=== PATIENT | female | born 1990 | race Caucasian/White ===

== ENCOUNTER 2023-08-15 08:47 | Emergency (ER) | payer OTHER, SELFPAY ==
--- NOTE | ~2023-08-15 | XR_ITS ---
EXAMINATION: [id number] DATE: 08/15/2023 09:16 INDICATION: Sudden onset left knee pain post injury while walking TECHNIQUE: AP and crosstable lateral views of the left knee were obtained. COMPARISON: None. FINDINGS: Alignment is normal. No fracture. Joint spaces appear relatively preserved although narrowing can be underestimated on nonweightbearing imaging. There are tiny marginal osteophytes in all 3 compartments consistent with at least minimal osteoarthritis. Heterotopic ossicle versus loose osteochondral body projecting along the lateral margin of the lateral compartment joint line on the frontal projection and along the inferior aspect of the patellofemoral articulation on the lateral projection. No joint effusion or layering lipohemarthrosis. IMPRESSION: 1. No left knee joint effusion or acute osseous abnormality. 2. At least minimal tricompartmental osteoarthritis at the left knee with heterotopic ossicles versus loose osteochondral along the lateral aspect of the knee. Reviewed, dictated and finalized at location A. IMPRESSION: 1. No left knee joint effusion or acute osseous abnormality. 2. At least minimal tricompartmental osteoarthritis at the left knee with heter otopic ossicles versus loose osteochondral along the lateral aspect of the knee .
[2023-08-15 08:50] VITALS: BP 167/104; PULSE 79; RESP 16; TEMP 36.6; O2SAT 98
--- NOTE | 2023-08-15 09:22 | ED.GENADULT ---
HPI - General Adult General Chief complaint: Extremity Injury, Lower Stated complaint: knee injury Time Seen by Provider: 08/15/23 08:56 History of Present Illness HPI narrative: Ksenia Sparks is a 32 y/o female who presents with reports of injuring her left knee at work in May. She states at that time she had lifted something heavy and twisted and had instant pain to her left knee. She followed up with her PCP and Ortho and was told to wear a knee brace to help with her knee pain.. She has been wearing the brace and last night she got up to walk somewhere and her right left knee rotated and she had increased pain that has not stopped, she tried to wear the knee brace but states it was causing her too much pain. She reports she cannot straighten it all the way and having a lot of pain to the lateral aspect of the left knee. Related Data Allergies Allergy/AdvReac Type Severity Reaction Status Date / Time butorphanol Allergy Unknown Unknown Verified 08/15/23 08:49 Latex, Natural Rubber Allergy Itching Verified 08/15/23 08:49 peanut Allergy Anaphylaxis Verified 08/15/23 08:49 Review of Systems Review of Systems: CONSTITUTIONAL: Denies fever, chills, or sweats. EYES: Denies visual changes, redness, or discharge. ENT: Denies rhinorrhea, congestion, sore throat, or otalgia. CARDIOVASCULAR: Denies chest pain, palpitations, or edema. RESPIRATORY: Denies cough or dyspnea. GASTROINTESTINAL: Denies abdominal pain, nausea, vomiting, or diarrhea. GENITOURINARY: Denies dysuria or hematuria. SKIN: Denies rash or itching. MUSCULOSKELETAL: complains of severe left knee pain NEUROLOGIC: Denies headache, numbness, dizziness, or weakness. PSYCHIATRIC: Denies anxiety or depression. Exam Narrative: GENERAL: Well-appearing, well-nourished, and in no acute distress. HEAD: Normocephalic, atraumatic. EYES: PERRLA and EOMI. ENT: Nares clear, no rhinorrhea or epistaxis. Mucous membranes moist. Oropharynx without tonsillar hypertrophy exudate or other lesions. NECK: Supple. No adenopathy or masses. No carotid bruits or JVD CHEST: Clear to auscultation. No respiratory distress. No wheezes rales or rhonchi HEART: Regular rate and rhythm. No murmur heard. Normal peripheral pulses. ABDOMEN: Soft, nontender, nondistended, normal active bowel sounds. EXTREMITIES: swelling noted to left knee, pain noted with palpation to the left lateral aspect of the knee. SKIN: Warm, dry, no rash. NEURO: No focal deficits. Alert and oriented x3. PSYCH: Normal mood and affect. Course Vital Signs Vital signs: Vital Signs Temperature 36.6 C 08/15/23 08:50 Pulse Rate 79 08/15/23 08:50 Respiratory Rate 16 08/15/23 08:50 Blood Pressure 167/104 H 08/15/23 08:50 Pulse Oximetry 98 08/15/23 08:50 Oxygen Delivery Room Air 08/15/23 08:50 Temperature 36.6 C 08/15/23 08:50 Pulse Rate 79 08/15/23 08:50 Respiratory Rate 16 08/15/23 08:50 Blood Pressure 167/104 H 08/15/23 08:50 Pulse Oximetry 98 08/15/23 08:50 Oxygen Delivery Room Air 08/15/23 08:50 Medical Decision Making [facility] Narrative Medical decision making narrative: On exam pt appears to be uncomfortable splinting movement of her left knee distal pulses present color normal for ethnicity pain to the lateral and posterior aspect of the knee and directly on top of the patella. plan to treat her pain and check and x ray xray is negative for acute fractures, discussed with pt that we will place her in a knee immobilizer / crutches and have her remain no weight bearing until follow up with orthopedics. Patient verbalizes understanding and all questions answered Differential Diagnosis Differential Diagnosis: knee fracture/ patella dislocation/ ligament damage/ tendon damage / knee strain Medical Records Medical records reviewed: Yes I reviewed the external patient's medical records. Vital Signs Vital Signs: Vital Signs Temperature 36.6 C 08/15/23
[2023-08-15] MEDS: CYCLOBENZAPRINE HCL 10 MG TABLET PO (09:25)
[2023-08-15] MEDS: HYDROcodone/acetaminophen (*CRX) 5-325 MG TABLET 1 TAB PO (09:25)
[2023-08-15 09:30] VITALS: BP 132/80; PULSE 80; RESP 16; O2SAT 100
[2023-08-15 10:30] VITALS: BP 128/78; PULSE 78; RESP 16; TEMP 36.8; O2SAT 98
== END 2023-08-15 11:03 | disposition home or self-care (01) ==
PROVIDERS: Emergency Provider Nurse Practitioner Family
DX: S89.92XD Unspecified injury of left lower leg, subsequent encounter (principal); X50.0XXA Overexertion from strenuous movement or load, initial encounter; Y99.0 Civilian activity done for income or pay
CPT/HCPCS: 73560; 99283; A9270

== ENCOUNTER 2023-10-31 02:24 | Day surgery (SDC) | payer OTHER, SELFPAY ==
[2023-10-26 15:17] VITALS: BMI 37.5
--- NOTE | 2023-10-26 15:25 | SUR.PREOP ---
Report to the Outpatient Waiting Room, entrance under the green pavilion located off [facility], at time 1130 on date _10/31/23_. Planned Procedure Time: 1330. Time changes happen often and if your time is changed the preop area will call you the afternoon before. - You and your visitor will be asked to self-screen and do not enter if you have any COVID symptoms. - A mask is optional within the hospital at this time. Patients may have clear liquids (water, carbonated beverages, clear teas, apple juice) until 3 hours prior to surgery with a maximum of 20 ounces. - No food from midnight until time of surgery before 1030 am - Infants may have breast milk until 4 hours before surgery, formula 6 hours prior to surgery. - Children will be allowed to drink immediately following surgery. If applicable, please bring a bottle or sippy cup to assist with drinking. Juice, water, soda, and popsicles are readily available. For infants on formula, please bring formula the day of surgery. Pacifiers are allowed. Take the following medications with a SIP of water the morning of surgery: n/a DO NOT STOP ANY OF YOUR OTHER PRESCRIPTION MEDICATIONS PRIOR TO SURGERY ?EXCEPT THE FOLLOWING Medications to discontinue per physician Date to take last dose Please no make-up, nail kyrgyz, hairspray, perfume, deodorant, or body powder the day of surgery. No jewelry (including any body piercings) or valuables the day of surgery, leave them at home. Please take a shower or bath the night before, or the morning of, surgery with an antibacterial soap. Wear comfortable, loose fitting clothing. Children are encouraged to wear pajamas. - Jewelry must be removed prior to entering the operating room. Rings and piercings that are not removed may be cut off. - The hospital will not accept responsibility for valuables. - Please leave all valuables, including medications, at home the day of surgery. If you are going home after surgery, a licensed school bus driver/teacher assistant must drive you home. - NO public transportation without another adult if you receive anesthesia. - We recommend that an adult stay with you for 24 hours following discharge. - We also recommend that you do not drive, make important decision, drink alcoholic beverages, or take any drugs that were not prescribed by your health care provider for at least 24 hours after your discharge time. For Pediatric surgeries, we recommend two adults accompany the child home. Follow any additional instructions given to you from your surgeon. If you or anyone in your household have experienced Covid symptoms in the past week, please notify your surgeon or the nurse liaison at the phone number below for possible testing. Telephone instructions given to _patient__and asked if any additional questions and then verbalized understanding. Patient advised to call surgeon office or pre surgery nurse liaison [phone] if any additional questions.
[2023-10-31] VITALS (8 sets, daily range): BP systolic 118–142; BP diastolic 68–98; PULSE 58–75; RESP 14–20; TEMP 36.1–36.6; O2SAT 93–100
--- NOTE | 2023-10-31 10:02 | WPDHPUPDATE1 ---
History and Physical Update Update Date/Time: 10/31/23 10:02 History and Physical has been reviewed, including an updated exam of the patient. There are NO changes in the patient's condition. Risks, benefits, and alternatives have been discussed and questions answered. Patient agrees to proceed with procedure.
[2023-10-31] MEDS: KETOROLAC 15 MG/ML VIAL (*BKC) IV PUSH (12:30)
[2023-10-31] MEDS: ACETAMINOPHEN 500 MG TABLET 1000 MG PO (12:30)
[2023-10-31] MEDS: LACTATED RINGERS 1,000 ML 30 ML IV CONT (12:30)
--- NOTE | 2023-10-31 12:52 | P.PNAN_ITS ---
Anes - Initial Pre Proc Eval Procedure: Operation Date: 10/31/23 13:30 Proposed Procedures p Left Knee Arthroscopic Loose Body Removal - Loki Torres MD Date/Time: 10/31/23 12:52 Surgeon: Loki Torres MD Pre Op Diagnosis: Lt Knee Loose Body Patient Data Age: 33 Gender: F Height: 1.63 m Weight: 99.34 kg Allergies Allergy/AdvReac Type Severity Reaction Status Date / Time butorphanol Allergy Severe Seizure Verified 10/26/23 15:28 Latex, Natural Rubber Allergy Itching Verified 10/25/23 13:15 peanut Allergy Anaphylaxis Verified 10/25/23 13:15 Home Medications Medication Instructions Recorded Confirmed Type trazodone 100 mg tablet 100 mg PO QHS 09/18/23 10/26/23 History hydrocodone 5 mg-acetaminophen 325 1 - 2 tablet PO Q4-6H PRN pain #30 10/31/23 Rx mg tablet tabs Patient hx anesthesia problems: none Family hx anesthesia problems: none Results Review: All pre-operative results and documents have been reviewed as part of the pre- operative evaluation. [facility] Past Medical History Medical History History of bruising easily Psoriasis Psoriatic arthritis Surgical History Surgical History History of 2 sections 2007 2011 Hx of wisdom tooth extraction Family History Family History Mother Diabetes mellitus Hypertension Fibromyalgia Cervical cancer Father Blood clotting disorder Social History Social History Smoking status: Never smoker Alcohol intake: never Substance use: never Substance use type: does not use Lack of Transportation: No Lack of Food: Never True Current Housing: I Have Housing Concerned About Future Housing: No Difficulty Paying Gas/Electric Bills: No Difficulty Paying for Meds: No Currently Unemployed: No Education: Associate Degree Difficulty w/ Childcare or Family Care: No Living arrangements: with family Spiritual care concerns: No Anes - Eval Final PreProcedure Day of Procedure 10/31/23 12:52 Patient weight: obese Heart: regular rate and rhythm Lungs: clear to auscultation Airway: Mallampati scale class II Neurological: alert and oriented Last oral intake: >/= 8 hours ASA classification: II Emergent: no Anesthetic plan: proceed Anesthesia type and monitoring: general LMA and standard monitoring Results Review: All pre-operative results and documents have been reviewed as part of the pre- operative evaluation. Informed Consent: The patient's anesthetic plan and its attendant risks and benefits were discussed with the patient/family/POA. Questions were solicited and answers provided to the satisfaction of the patient/family/POA.
[2023-10-31] MEDS: ceFAZolin 2 GM/D5W 50 ML 2 GM/50 ML BAG IVPB (13:04)
[2023-10-31] MEDS: BUPIVACAINE/EPINEPHRINE 0.5% 10 ML VIAL 30 ML INFILTRATE (13:33)
--- NOTE | 2023-10-31 14:06 | W.PM.PROC2 ---
Procedure Note - Detailed Date of Procedure 10/31/23 Pre-op Diagnosis 1. Lt Knee Loose Body 2. Patellofemoral arthritis Post-op Diagnosis Same Procedure Performed Arthroscopic loose body removal with patellar chondroplasty, left knee. Surgeon Loki Torres MD Anesthesia General Indications Symptomatic loose body with locking symptoms. Chronic patellofemoral arthritis. Findings 1 cm loose body floating in the lateral gutter. Removed through the lateral portal using the arthroscopic grasper. Severe patellofemoral arthritis with large areas of exposed bone. Patella debridement accomplished with the shaver. Medial and lateral compartments normal with normal ACL ligament. Description of Procedure Preoperative antibiotics given. General anesthetic administered. Leg prepped and draped in the usual sterile fashion in the arthroscopic leg wright. The limb was exsanguinated and the tourniquet inflated to 300 mmHg during the procedure. Standard medial and lateral arthroscopic portals established. Inflow with the saline pump. Loose body was identified laterally and retrieved through the lateral portal using the grasping device. It measured approximately 1 cm in diameter. It was cartilaginous. The medial and lateral compartments were normal as was the ACL. Attempts were made to get to the back of the knee although this was blocked by early osteophytes and that tight intercondylar notch. 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 The patella was debrided of loose friable cartilage. Superior pouch and medial gutter were inspected and found to be normal. There was a mild synovitis laterally where the area of pain and locking symptoms were occurring. The wounds were closed with 4-0 Monocryl suture followed by Steri-Strips. The patient tolerated the procedure well. Estimated Blood Loss 5 Pathology Other (Loose body retrieved but pathology not required. Obvious osteocartilaginous tissue.) Complications No immediate complications Condition Stable Disposition PACU [facility] Billing Surgery - Charge Forward: Surgery Billing
[2023-10-31] MEDS: oxyCODONE HCL (*CRX) 5 MG TAB IR PO (15:32)
== END 2023-10-31 16:25 | disposition home or self-care (01) ==
PROVIDERS: Visit Provider Orthopaedic Surgery
PROC: (CPT 29870; principal; 2023-10-31 13:30)
DX: M23.42 Loose body in knee, left knee (principal); M22.2X2 Patellofemoral disorders, left knee; E66.9 Obesity, unspecified; Z68.37 Body mass index [BMI] 37.0-37.9, adult; Z79.891 Long term (current) use of opiate analgesic; Z80.49 Family history of malignant neoplasm of other genital organs
CPT/HCPCS: 29874; A9270; J0690; J1100; J1200; J1885; J2250; J2405; J2704; J3010; J7120